=== PATIENT | female | born 1985 | race Caucasian/White ===

== ENCOUNTER 2016-07-12 01:21 | Emergency (ER) | payer OTHER ==
[~2016-07-12] VITALS: Ht 160 cm; Wt 93.2 kg
[~2016-07-12 01:21] MED LIST: LEXAPRO20 MG PO; PRENATAL1 TA1 PO; PRIL40 PO; ULTRAM 50MG TAB50 MG PO
[2016-07-12 01:23] VITALS: TEMP 98.8
[2016-07-12] MEDS ORDERED: PROTONIX20 MG PO (01:26)
[2016-07-12 02:20] VITALS: BP 151/84; PULSE 102
== END 2016-07-12 02:19 | disposition home or self-care (01) ==
LOC: COL.ER 01:21
DX: H60.502 Unspecified acute noninfective otitis externa, left ear (principal)